=== PATIENT | female | born 1970 | race Caucasian/White ===

== ENCOUNTER 2018-08-12 09:57 | Emergency (ER) | payer MEDICAID ==
[~2018-08-12] VITALS: Ht 160 cm; Wt 44.5 kg
[2018-08-12 10:05] VITALS: BP 125/75
--- NOTE | 2018-08-12 10:10 | NUR ---
PT AMBULATES TO BED 12
[2018-08-12] MEDS ORDERED: KETOROLAC 30 MG/ML VIAL IM ONE (11:00)
--- NOTE | 2018-08-12 11:28 | NUR ---
PATIENT PRESENTS TO ED WITH C/O LEFT SHOULDER PAIN ; WORSEN BY LAYING ON LEFT SIDE OR ATTEMPTING FULL ROM DENIES INJURY/TRAUMA, NO DISCOLORATION, OR SWELLING NOTED. +2 RADIAL PULSE <3 SEC CAP REFILL. DENIES N/V/D; SKIN IS PINK/WARM/DRY; AAOX4 WITH EVEN AND STEADY GAIT; LUNGS CLEAR BL; HR EVEN AND REGULAR; PT DENIES ANY FEVER, CP, SOB, OR COUGH AT THIS TIME; PATIENT STATES PAIN OF 10/10 AT THIS TIME; VSS; PATIENT POSITIONED FOR COMFORT; HOB ELEVATED; BEDRAILS UP X2; BED DOWN. ER MD MADE AWARE OF PT STATUS.
[2018-08-12 11:29] VITALS: BP 125/75
== END 2018-08-12 11:23 | disposition home or self-care (01) ==
LOC: MED 09:57
DX: M25.512 Pain in left shoulder (principal)
CPT/HCPCS: 96372; 99283; J1885